=== PATIENT | male | born 1980 | race African-American/Black ===

== ENCOUNTER 2019-08-04 14:44 | Emergency (ER) | payer SELFPAY ==
[~2019-08-04] VITALS: Ht 180.3 cm; Wt 61.2 kg
--- NOTE | 2019-08-04 14:56 | NUR ---
PT AMBULATED TO ER BED 04
--- NOTE | 2019-08-04 15:01 | NUR ---
38 Y/O M C/C ALCOHOL WITHDRAWAL. PER PT "PASSED OUT AROUND 0930 HOURS TODAY". UNWITNESSED EVENT. RECALLS WAKING UP ON THE FLOOR. LAST DRINK PER PT YESTERDAY 1000 HOURS. PT NKA. NO HX. NO RX. DENIES V/D. C/C OF NAUSEA. SIDE RAIL X1. FAMILY AT BEDSIDE. PT A/OX4; PUPILS PERRLA.
[2019-08-04 15:03] VITALS: BP 137/91
[2019-08-04] MEDS ORDERED: LORazepam 1 MG TAB PO ONE (15:40)
[2019-08-04 15:56] VITALS: BP 132/84
--- NOTE | 2019-08-04 15:56 | NUR ---
Patient discharged with v/s stable. Written and verbal after care instructions given and explained. Patient alert, oriented and verbalized understanding of instructions. Ambulatory with steady gait. All questions addressed prior to discharge. ID band removed. Patient advised to follow up with PMD. Rx of CHLORDIAZEPOXIDE given. Patient educated on indication of medication including possible reaction and side effects. Opportunity to ask questions provided and answered.
== END 2019-08-04 15:56 | disposition home or self-care (01) ==
LOC: MED 14:44
DX: F10.239 Alcohol dependence with withdrawal, unspecified (principal); R55 Syncope and collapse; F17.210 Nicotine dependence, cigarettes, uncomplicated; Z71.6 Tobacco abuse counseling
CPT/HCPCS: 99283